=== PATIENT | male | born 1965 | race Caucasian/White ===

== ENCOUNTER 2016-08-23 14:30 | Emergency (ER) | payer BC, OTHER ==
[~2016-08-23] VITALS: Ht 185.4 cm; Wt 98.7 kg
[~2016-08-23 14:30] MED LIST: HYDR-3419 PO
[2016-08-23 14:41] VITALS: TEMP 36.8; Ht 185.4 cm; Wt 98.7 kg
[2016-08-23] MEDS ORDERED: PRLSR20 PO (14:52)
[2016-08-23] MEDS ORDERED: IBUPROFEN 800 MG TAB PO STA (15:04)
--- NOTE | 2016-08-23 15:20 | EMERGENCY ROOM VISIT NOTE ---
ED Visit Note First contact with patient: 14:50 CHIEF COMPLAINT: Right calf pain HISTORY OF PRESENT ILLNESS: This a 51-year-old male patient presents to the emergency department approximately 2 hours after sustaining an injury to the right calf. Patient states he was pulling a tarp topped with weeds, when he experienced a popping sensation in his right calf. Patient states he immediately fell to the ground, then had difficulty ambulating. He was able to shuffle and slide into the house, where he elevated the leg, and applied ice. Patient states he did not take any medications for the discomfort. The patient complains of pain of the middle posterior calf. The patient denies pain of the foot, ankle, knee. The patient rates the pain as achy at rest and 1/10, but reports pain is very sharp with ambulation, and 9/10. The patient is not able to bear weight on the leg. Pain increases with dorsiflexion of the foot. No numbness or weakness of the distal extremity, no laceration. The patient has not had a previous fracture or injury to this leg. The patient does travel often for his job, however he states this pain occurred after the injury. The patient denies redness, swelling, warmth, dyspnea, headache, dizziness. The patient denies any other injury. REVIEW OF SYSTEMS: A 6 system review of systems was completed with positives and pertinent negatives listed in the HPI. ALLERGIES: None MEDICATIONS: Omeprazole PMH: GERD SOCIAL HISTORY: lives locally with his family. He denies tobacco or drug use. He does report occasional alcohol use socially. PHYSICAL EXAM: Vital Signs: Reviewed Nurse's notes, vital signs stable. GENERAL : 51-year-old male, no acute distress, but appears in pain, well-developed, well -nourished. MENTAL STATUS: Alert, oriented to person place and time, and cooperative. MUSCULOSKELETAL: Pt. is experiencing calf tenderness on palpation. There is no redness or swelling. There is no visual deformity. The patient has full range of motion of his knee and ankle, however complains of increased discomfort in the calf with dorsiflexion of the ankle. The patient reports moderate tenderness on palpation of the mid left calf. The foot and toes are warm and well-perfused. No tenderness on palpation of the tibia or fibula. Dorsalis pedis and posterior tibial pulse 2+. Sensation to pain and light touch is intact. Capillary refill less than 2 seconds. EMERGENCY DEPARTMENT COURSE: I examined the patient. The patient was given an ice pack. X-rays of the lower leg were reviewed by myself and read by radiology and reveal: FINDINGS: AP and lateral views of the right tibia and fibula are obtained. No prior studies are available for comparison at the time of dictation. The skeletal structures are well mineralized. No right tibial or fibular fracture is seen. The knee and ankle joints are grossly maintained. The overlying soft tissues are within normal limits. IMPRESSION: No acute bony abnormality is seen involving the right tibia or fibula. An BIBIANA wrap was applied to the lower leg under my direction and the position was satisfactory. Neurovascular status was rechecked and intact. I strongly encouraged the patient to use crutches, however, he declines and states "give them to someone who will actually use them." I discussed with the patient be possible adverse events which could occur if patient does not except crutches and stay off of the leg, however he continues to refuse them. The patient was discharged home in good condition. DIAGNOSIS: Right calf strain DIFFERENTIAL DIAGNOSIS: Right calf sprain, muscle, calf, tendon tear, tibia or fibula fracture, DVT, and others. DISCHARGE INSTRUCTIONS: Ibuprofen(Motrin, Advil) may be used for fever or pain. Use 600mg every six hours as needed. Take with food. Avoid using more than 2400mg in a 24 hour period. Do not use 2400mg per day for more than three consecutive days without physician direction. Prolonged inappropriate use can lead to stomach upset or ulcers. (AND/OR) Acetaminophen(Tylenol) may be used for fever or pain. Use 1000mg every six hours as needed. Avoid using more than 4000mg in a 24 hour period. Ice compresses for 20 minutes at a time four times daily for 2-3 days. I strongly recommend you use crutches. You may purchase these over the counter if you change your mind and decide you would like to use them. Rest and elevate your injury. Wear the BIBIANA wrap as directed, giving yourself a break from it while showering. You should wear good, supportive shoes, and consider using a cane, walker, or other device to assist with ambulation. Return to the ER immediately for any numbness, tingling, severe pain, extreme swelling in the extremity or as needed. Call [facility], [phone], on Thursday to arrange follow up for your injury. Follow-up with your primary care physician in 2 to 3 days for a recheck of your current condition. Current/Historical Medications Scheduled Omeprazole (Prilosec), 20 MG PO DAILY Allergies Coded Allergies: No Known Drug Allergy (Verified Allergy, Unknown, `, 08/23/16) Vital Signs Date Time Temp Pulse Resp B/P (MAP) Pulse Ox O2 Delivery O2 Flow Rate FiO2 08/23/16 16:14 75 17 135/81 94 08/23/16 14:41 36.8 78 18 127/87 98 Room Air Departure Information Impression Primary Impression: Strain of calf muscle Dispostion Home / Self-Care Condition GOOD Referrals Wesley Paredes DO (PCP) [facility] Patient Instructions My [facility] Additional Instructions ORTHOPEDIC INSTRUCTIONS: Ibuprofen(Motrin, Advil) may be used for fever or pain. Use 600mg every six hours as needed. Take with food. Avoid using more than 2400mg in a 24 hour period. Do not use 2400mg per day for more than three consecutive days without physician direction. Prolonged inappropriate use can lead to stomach upset or ulcers. (AND/OR) Acetaminophen(Tylenol) may be used for fever or pain. Use 1000mg every six hours as needed. Avoid using more than 4000mg in a 24 hour period. Ice compresses for 20 minutes at a time four times daily for 2-3 days. I strongly recommend you use crutches. You may purchase these over the counter if you change your mind and decide you would like to use them. Rest and elevate your injury. Wear the BIBIANA wrap as directed, giving yourself a break from it while showering. You should wear good, supportive shoes, and consider using a cane, walker, or other device to assist with ambulation. Return to the ER immediately for any numbness, tingling, severe pain, extreme swelling in the extremity or as needed. Call [facility], [phone], on Thursday to arrange follow up for your injury. Follow-up with your primary care physician in 2 to 3 days for a recheck of your current condition. Problem Qualifiers Primary Impression: Strain of calf muscle Encounter type: initial encounter Laterality: right Qualified Codes: S86.811A - Strain of other muscle(s) and tendon(s) at lower leg level, right leg , initial encounter
--- NOTE | 2016-08-23 15:32 | DIAGNOSTIC IMAGING REPORT ---
RIGHT TIBIA AND FIBULA 2 VIEWS CLINICAL HISTORY: Right leg pain. FINDINGS: AP and lateral views of the right tibia and fibula are obtained. No prior studies are available for comparison at the time of dictation. The skeletal structures are well mineralized. No right tibial or fibular fracture is seen. The knee and ankle joints are grossly maintained. The overlying soft tissues are within normal limits. IMPRESSION: No acute bony abnormality is seen involving the right tibia or fibula. Electronically signed by: Nishant Fitzgerald M.D. 08/23/2016 3:30 PM Dictated Date/Time: 08/23/2016 3:29 PM
[2016-08-23 16:14] VITALS: BP 135/81; PULSE 75; O2SAT 94
== END 2016-08-23 16:15 | disposition home or self-care (01) ==
LOC: C.EDB 14:31 → C.EDD 16:15
DX: S86.811A Strain of other muscle(s) and tendon(s) at lower leg level, right leg, initial encounter (principal); Y93.89 Activity, other specified; M79.661 Pain in right lower leg

== ENCOUNTER → 2017-06-11 | Outpatient (CLI) | payer OTHER ==
[~2017-06-11] MED LIST changes: +AZITTAB PO; +CEFD300C2 PO; -HYDR-3419 PO; +PRED20TA PO; +PRLSR20 PO; +PRVIN525X INH; +VNTHFA/IN INH
--- NOTE | 2017-06-11 13:17 | DIAGNOSTIC IMAGING REPORT ---
TWO VIEW CHEST CLINICAL HISTORY: Dyspnea. FINDINGS: PA and lateral chest radiographs are compared to study dated 01/04/2013. The cardiomediastinal silhouette is unremarkable. There is patchy airspace consolidation in the left mid to lower lung. The right lung appears clear noting basilar atelectasis. No pleural effusion is identified. There is no pneumothorax. The bony thorax appears intact. IMPRESSION: Patchy airspace consolidation is seen in the left mid to lower lung. The appearance is typical for pneumonia. Clinical correlation will be required and radiographic follow-up to resolution is recommended. Electronically signed by: Nishant Fitzgerald M.D. 06/11/2017 1:16 PM Dictated Date/Time: 06/11/2017 1:15 PM
== END | disposition home or self-care (01) ==
LOC: C.RADBC 12:53
PROVIDERS: ATTEND Family Medicine
DX: R06.02 Shortness of breath (principal)

== ENCOUNTER → 2017-07-17 | Day surgery (SDC) | payer OTHER ==
[2017-07-10 09:46] VITALS: Ht 185.4 cm; Wt 96.4 kg
[~2017-07-17] VITALS: Ht 185.4 cm; Wt 96.4 kg
[~2017-07-17] MED LIST changes: -AZITTAB PO; -CEFD300C2 PO; +FENTANYL CITRATE INJ 50 MCG/1 ML 2 ML VIAL ONE; +FLUC100T4 PO; +LIDOCAINE HCL 2% 2 ML VIAL (20MG/ML) ONE; -PRED20TA PO; +PROPOFOL IV EMULSION 10 MG/ML 20 ML VIAL ONE; -PRVIN525X INH; +SODIUM CHLORIDE 0.9% 500ML 500 ML IV ONE; -VNTHFA/IN INH
--- NOTE | 2017-07-17 11:16 | Endo History and Physical ---
History & Physical Date of Service: July 17, 2017. Chief Complaint: Aspiration pneumonia, sepsis Referring Physician: Dr. Paredes History of Present Illness 51 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 Past Surgical History Hx Cardiac Surgery: No Hx Internal Defibrillator: No Hx Pacemaker: No Hx Abdominal Surgery: Yes (APPY, PYLORIC STENOSIS REPAIR AT 6 MONTHS, RT/LEFT INGUINAL HERNIA) Hx of Implantable Prosthesis: No Hx Post-Op Nausea and Vomiting: No Hx Cancer Surgery: No Hx Thoracic Surgery: Yes (BRONCHOSCOPY) Hx Orthopedic: No Hx Urinary Tract Surgery: No Family History None Social History Smoking Status: Never Smoker Hx Substance Use: No Hx Alcohol Use: Yes (OCCASIONALLY) Allergies Coded Allergies: No Known Drug Allergy (Verified Allergy, Unknown, `, 07/17/17) Current Medications Reported Home Medications Medications Dose Route/Sig Max Daily Dose Days Date Category Diflucan (Fluconazole) 100 Mg Tab 100 Mg PO QAM 07/10/17 Reported Prilosec (Omeprazole) 20 Mg Capcr 20 Mg PO QAM 01/04/13 Reported Vital Signs Weight (Kilograms): 96.36 Height (Feet): 6 Height (Inches): 1 Date Time Temp Pulse Resp B/P (MAP) Pulse Ox O2 Delivery O2 Flow Rate FiO2 07/17/17 10:44 36.6 68 16 132/91 (105) 96 Room Air Physical Exam General Appearance: WD/WN, no apparent distress Respiratory/Chest: Auscultation: breath sounds normal Cardiovascular: Heart Auscultation: RRR Abdomen: Bowel Sounds: normal Inspection & Palpation: soft, non-distended, no tenderness, guarding & rebound Assessment and Plan Assessment: 51 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 Plan: Proceed with EGD with Raya pH placement.
--- NOTE | 2017-07-17 11:45 | GI REPORT ---
Patient Name: Ck Steinberg Procedure Date: 07/17/2017 11:28 AM Date of : 1965 Admit Type: Outpatient Age: 51 Gender: Male Attending MD: Adryan Arizmendi DO Procedure: Upper GI endoscopy Providers: Adryan Arizmendi DO Referring MD: Donell Middleton Md Indications: Suspected gastro-esophageal reflux disease, Recent Aspiration pneumonia Medicines: Monitored Anesthesia Care Complications: No immediate complications. Estimated Blood Loss: Estimated blood loss: none. Procedure: Pre-Anesthesia Assessment: - Prior to the procedure, a History and Physical was performed, and patient medications and allergies were reviewed. The patient's tolerance of previous anesthesia was also reviewed. The risks and benefits of the procedure and the sedation options and risks were discussed with the patient. All questions were answered, and informed consent was obtained. Prior Anticoagulants: The patient has taken no previous anticoagulant or antiplatelet agents. ASA Grade Assessment: II - A patient with mild systemic disease. After reviewing the risks and benefits, the patient was deemed in satisfactory condition to undergo the procedure. After obtaining informed consent, the endoscope was passed under direct vision. Throughout the procedure, the patient's blood pressure, pulse, and oxygen saturations were monitored continuously. The Scope was introduced through the mouth, and advanced to the second part of duodenum. The upper GI endoscopy was accomplished without difficulty. The patient tolerated the procedure well. Findings: The examined esophagus was normal. The WALKER capsule with delivery system was introduced through the mouth and advanced into the esophagus, such that the WALKER pH capsule was positioned 38 cm from the incisors, which was 6 cm proximal to the GE junction. The WALKER pH capsule was then deployed and attached to the esophageal mucosa. The delivery system was then withdrawn. Endoscopy was utilized for probe placement and diagnostic evaluation. The stomach was normal. The examined duodenum was normal. Impression: - Normal esophagus. - Normal stomach. - Normal examined duodenum. - The WALKER pH capsule was deployed. - No specimens collected. Recommendation: - Resume previous diet. - Continue present medications. - Return to primary care physician as previously scheduled. Adryan Arizmendi DO 07/17/2017 11:45:19 AM This report has been signed electronically. Note Initiated On: 07/17/2017 11:28 AM Number of Addenda: 0 I attest to the content of the Intraoperative Record and orders documented therein, exceptions below {[id number]}
[2017-07-17 12:14] VITALS: BP 110/75; PULSE 57; O2SAT 94
--- NOTE | 2017-07-17 12:41 | Discharge Instructions ---
Endoscopy Patient Instructions Date / Procedure(s) Performed July 17, 2017. EGD Allergy Information Coded Allergies: No Known Drug Allergy (Verified Allergy, Unknown, `, 07/17/17) Discharge Date / Findings July 17, 2017. Successful placement of Raya pH monitor Medication Instructions OK to resume all medications today as prescribed Reported Home Medications Medications Dose Route/Sig Max Daily Dose Days Date Category Diflucan (Fluconazole) 100 Mg Tab 100 Mg PO QAM 07/10/17 Reported Prilosec (Omeprazole) 20 Mg Capcr 20 Mg PO QAM 01/04/13 Reported Provider Instructions Activity Restrictions - No exercising or heavy lifting for 24 hours. - Do not drink alcohol the day of the procedure. - Do not drive a car or operate machinery until the day after the procedure. - Do not make any important decisions or sign important papers in 24 hours after the procedure. Following Day: - Return to full activity which may include returning to work/school. Diet Start your diet with liquids and light foods (jello, soup, juice, toast). Then eat your usual diet if not nauseated. Treatment For Common After Affects For mild abdominal pain, bloating, or excessive gas: - Rest - Eat lightly - Lie on right side Follow-Up Information Follow-up with Dr. Paredes as scheduled Anesthesia Information What You Should Know You have had a procedure that required some medicine to reduce anxiety and discomfort. This treatment is called moderate sedation. After receiving the treatment, you may be sleepy, but you will be able to breathe on your own. The effects of the treatment may last for several hours. Follow these instructions along with Activity/Diet recommendations noted above: * Do NOT do anything where dizziness or clumsiness would be dangerous. * Rest quietly at home today, then you can be up and about tomorrow. * Have a responsible person stay with you the rest of today. * You may have had an I.V. today. If so, you may take the dressing off later today. Recommendations Call your doctor if: * Trouble breathing * Continuous vomiting for more than 24 hours * Temperature above 101 degrees * Severe abdominal pain or bloating * Pain not relieved by pain medicine ordered * There is increased drainage or redness from any incision * A large amount of rectal bleeding greater than 2-3 tablespoons. (If you had a polyp/s removed or have hemorrhoids, a small amount of blood - from the rectum is to be expected.) * You have any unanswered questions or concerns. IN THE EVENT OF A SERIOUS EMERGENCY, GO TO THE NEAREST EMERGENCY ROOM Your discharge instructions were prepared by provider Adryan Arizmendi. Patient Instructions Signature Page Ck Steinberg Patient (or Guardian) Signature/Date: I have read and understand the instructions given to me by my caregivers. Caregiver/RN/Doctor Signature/Date: The above-named patient and/or guardian has received patient instructions on this date. + Original Patient Signature Page (only) stays with chart. Please make copy for patient.
--- NOTE | 2017-07-17 12:59 | Anesthesiology Progress Note ---
Anesthesia Post Op Note Date & Time July 17, 2017 at 12:58 Vital Signs Pain Intensity: 0 Vital Signs Past 12 Hours Date Time Temp Pulse Resp B/P (MAP) Pulse Ox O2 Delivery O2 Flow Rate FiO2 07/17/17 12:14 57 16 110/75 (87) 94 Room Air 07/17/17 11:59 58 16 116/78 (91) 95 Room Air 07/17/17 11:44 57 16 101/63 (76) 95 Room Air 07/17/17 10:44 36.6 68 16 132/91 (105) 96 Room Air Notes Mental Status: alert / awake / arousable, participated in evaluation Pt Amnestic to Procedure: Yes Nausea / Vomiting: adequately controlled Pain: adequately controlled Airway Patency, RR, SpO2: stable & adequate BP & HR: stable & adequate Hydration State: stable & adequate Anesthetic Complications: no major complications apparent
== END | disposition home or self-care (01) ==
LOC: C.GI 10:13
PROVIDERS: ATTEND Internal Medicine
DX: K21.9 Gastro-esophageal reflux disease without esophagitis (principal); Z90.49 Acquired absence of other specified parts of digestive tract